=== PATIENT | female | born 1975 | race Hispanic/Latino ===

== ENCOUNTER → 2021-12-03 16:26 | Outpatient (CLI) | payer OTHER, SELFPAY ==
--- NOTE | 2021-12-03 16:28 | DI.US.S_ITS ---
PROCEDURE: US PELVIC COMPLETE INDICATIONS: Vaginal bleeding TECHNIQUE: Real-time scanning was performed of the pelvic organs, with image documentation. Additional endovaginal scanning was necessary due to incomplete visualization of the adnexal and endometrial structures by transabdominal scanning. COMPARISON: None. FINDINGS: Uterus: Uterus is anteverted and mildly enlarged in size at 11.6 x 9 x 3 x 7.9 cm. The myometrium is heterogeneous. There is a fibroid seen on the right posteriorly, which is believed to be submucosal measuring 6.4 x 5.3 x 5.8 cm. The endometrial stripe is not well seen. Ovaries: The ovaries are overall not well seen. The right ovary measures 2.3 x 1.2 x 2.3 cm, with a calculated ovarian volume of 3.3 cc. The left ovary measures 2.4 x 1.6 x 2.2 cm, with a calculated ovarian volume of 4.4 cc. No adnexal masses are seen. Other: No pathologic free abdominal or pelvic fluid. IMPRESSION: Enlarged uterus with a 6.4 cm fibroid, which is believed to be submucosal. Poor visualization of the ovaries. We strive to produce accurate, complete, and clear reports of imaging services. To assist us in improving patient care, this report was composed using standard report templates and voice recognition software. Therefore, it may contain abnormal punctuation, insertions and/or omissions. Occasional wrong-word or sound-alike substitutions may occur. Though we review the report and make efforts to correct it, we do recommend that the report be read carefully in proper context to recognize any text inaccuracies. Dictated by: Ganesh Boggs M.D. on 12/03/2021 at 16:22 Approved by: Ganesh Boggs M.D. on 12/03/2021 at 16:24
== END ==
PROVIDERS: Referring Provider Obstetrics & Gynecology; Visit Provider Obstetrics & Gynecology
DX: D25.1 Intramural leiomyoma of uterus (principal); N92.1 Excessive and frequent menstruation with irregular cycle
CPT/HCPCS: 76830; 76856